=== PATIENT | female | born 2000 | race Caucasian/White ===

== ENCOUNTER 2021-11-03 21:22 | Inpatient (IN) | payer OTHER, SELFPAY ==
[~2021-11-03 21:22] MED LIST: Bupivacaine 0.25% HCL 30 ML VIAL ONE; ePHEDrine Sulfate 50 MG/10 ML VIAL ONE
[2021-11-03] MEDS ORDERED: hydrALAZINE 20 MG/ML VIAL SLOW IVP PRN ×2 (22:20→22:49)
[2021-11-03 22:33] VITALS: BMI 28.5
[2021-11-03 22:33] LABS: Fetal Membranes Rupture RUPTURE DETECTED (No Rupture)
[2021-11-03] MEDS ORDERED: Ondansetron PF 4 MG/2 ML Vial IVP PRN (22:49)
[2021-11-03] MEDS ORDERED: Lidocaine 1% (PF) 30 ML VIAL SC PRN (22:49)
[2021-11-03] MEDS ORDERED: Promethazine HCl 25 MG/ML VIAL IM PRN (22:49)
[2021-11-03] MEDS ORDERED: Lactated Ringer's 1,000 ML IV SCH (23:00)
[2021-11-03] MEDS ORDERED: Penicillin G Potassium 5 MILL.UNITS in Sodium Chloride 0.9% 100 ML IVPB SCH (23:00)
[2021-11-03] MEDS ORDERED: NS w/ Oxytocin 30 units 500 ML IV SCH (23:00)
[2021-11-03] MEDS ORDERED: NS w/ Oxytocin 30 units 500 ML IVPB SCH (23:00)
[2021-11-04 00:49] LABS: Mean Corpuscular HGB CONC 33.1 g/dL (32.0-36.0); Mean Corpuscular Hemoglobin 29.4 pg (27.0-33.0); Mean Corpuscular Volume 88.8 fl (81.6-98.3); Mean Platelet Volume 9.7 fl (7.4-10.4); Platelet Count 307 10x3/uL (150-450); RBC Distribution Width 13.2 % (11.5-14.5); Red Blood Cell (RBC) Count 3.74 10x6/uL (3.90-5.03)
[2021-11-04 01:08] LABS: Hep B Surf Ag Non-Reactive S/CO (NonReactive); Syphilis Antibody Nonreactive (Nonreactive); Syphilis Antibody Index 0.13 S/CO (<1.00 Non-Reactive)
[2021-11-04 01:11] LABS: HBSAg Index 0.18 S/CO (0-0.99)
[2021-11-04 01:29] LABS: SARS-CoV-2 NAA Rapid Test Not Detected (NotDetected)
[2021-11-04] MEDS: Penicillin G 2.5 MILL.units 2.5 MILL.UNITS in Premix Bag 1 BAG IVPB SCH ×5 (04:22→17:06)
[2021-11-04] MEDS: Butorphanol Tartrate 1 MG/ML VIAL SLOW IVP PRN ×2 (04:29→08:08)
[2021-11-04] MEDS: Lactated Ringer's 1,000 ML IV SCH ×2 (06:53→17:05)
[2021-11-04] MEDS ORDERED: Fentanyl 2 mcg/Bup 0.1% Cadd 100 ML ONE (08:08)
[2021-11-04] MEDS ORDERED: CEFAZOLIN 1 GM VIAL ONE (11:55)
[2021-11-04] MEDS ORDERED: Azithromycin 500 MG VIAL ONE (11:56)
[2021-11-04] MEDS ORDERED: Morphine PF 10 MG/10 ML VIAL ONE (12:02)
[2021-11-04] MEDS ORDERED: Fentanyl 100 MCG/2 ML VIAL ONE (12:03)
[2021-11-04] MEDS ORDERED: Ketorolac Tromethamine 30 MG/ML VIAL ONE (12:19)
[2021-11-04 12:20] LABS: RapidComm Collect By CBN; pH (Cord, venous) 7.116 (7.250-7.350)
[2021-11-04] MEDS ORDERED: Ondansetron PF 4 MG/2 ML Vial IVP PRN ×3 (13:42→21:42)
[2021-11-04] MEDS ORDERED: Acetaminophen 325 MG TAB PO PRN (13:42)
[2021-11-04] MEDS ORDERED: ePHEDrine Sulfate 50 MG/10 ML VIAL SLOW IVP PRN (13:42)
[2021-11-04] MEDS ORDERED: Promethazine HCl 25 MG/ML VIAL IM PRN ×2 (13:42→21:42)
[2021-11-04] MEDS ORDERED: Naloxone HCl 0.4 mg/ml Vial IVP PRN ×4 (13:42→21:42)
[2021-11-04] MEDS ORDERED: Hydrocerin (Eucerin) Cream 120 gm Jar TOP PRN ×2 (13:42→21:42)
[2021-11-04] MEDS ORDERED: Lactated Ringer's 500 ML IV PRN (13:42)
[2021-11-04] MEDS ORDERED: diphenhydrAMINE 50 MG/ML VIAL IVP PRN ×2 (13:42→21:42)
[2021-11-04] MEDS ORDERED: Communication Order-Pharmacy FS SCH ×2 (13:45→21:45)
[2021-11-04] MEDS ORDERED: Fentanyl 2 mcg/Bupivacaine 0.1% Cassette 100 ML EPIDURAL SCH (13:45)
[2021-11-04] MEDS ORDERED: hydrALAZINE 20 MG/ML VIAL SLOW IVP PRN (16:56)
[2021-11-04] MEDS ORDERED: Methylergonovine 0.2 MG/ML VIAL IM PRN (16:56)
[2021-11-04] MEDS ORDERED: Lanolin Ointment 7 GM TUBE TOP PRN (16:56)
[2021-11-04] MEDS ORDERED: diphenhydrAMINE 25 MG CAP PO PRN (16:56)
[2021-11-04] MEDS ORDERED: Misoprostol 200 MCG TAB PR PRN (16:56)
[2021-11-04] MEDS ORDERED: Simethicone Chewable 80 MG TAB PO PRN (16:56)
[2021-11-04] MEDS ORDERED: Ibuprofen 800 MG TAB PO SCH (18:00)
[2021-11-04] MEDS: Docusate Calcium (SURFAK) 240 MG CAP PO SCH (20:59)
[2021-11-04] MEDS: Ferrous Sulfate 325 MG TAB PO SCH (21:00)
[2021-11-04] MEDS ORDERED: Naloxone HCl 0.4 mg/ml Vial IV PRN (21:42)
[2021-11-04] MEDS ORDERED: Promethazine HCl 25 MG SUPP PR PRN (21:42)
[2021-11-05] MEDS: Ketorolac Tromethamine 30 MG/ML VIAL IVP PRN ×2 (00:01→05:51)
[2021-11-05 04:09] LABS: Hemoglobin 8.5 g/dL (12.0-15.5); Mean Corpuscular HGB CONC 33.1 g/dL (32.0-36.0); Mean Corpuscular Hemoglobin 29.6 pg (27.0-33.0); Mean Corpuscular Volume 89.5 fl (81.6-98.3); Mean Platelet Volume 9.3 fl (7.4-10.4); Platelet Count 268 10x3/uL (150-450); RBC Distribution Width 13.4 % (11.5-14.5); Red Blood Cell (RBC) Count 2.87 10x6/uL (3.90-5.03); White Blood Cell (WBC) Count 16.9 10x3/uL (3.5-10.5)
[2021-11-05] MEDS: Ferrous Sulfate 325 MG TAB PO SCH ×2 (08:37→21:57)
[2021-11-05] MEDS: Prenatal Vitamin 1 TAB PO SCH (08:37)
[2021-11-05] MEDS: Docusate Calcium (SURFAK) 240 MG CAP PO SCH ×2 (08:37→21:57)
[2021-11-05] MEDS: HYDROcodone/Acetaminophen 5/325 mg Tablet PO PRN ×3 (11:38→21:58)
[2021-11-05] MEDS: Ibuprofen 800 MG TAB PO SCH ×2 (14:25→21:58)
[2021-11-05] MEDS ORDERED: Boostrix 0.5 ML (Tdap) VIAL IM ONE (16:56)
[2021-11-06] MEDS: HYDROcodone/Acetaminophen 5/325 mg Tablet PO PRN ×2 (02:01→05:38)
[2021-11-06] MEDS: Ibuprofen 800 MG TAB PO SCH (05:38)
[2021-11-06] MEDS ORDERED: Varicella virus, LIVE 0.5 ML VIAL SC ONE (06:30)
[2021-11-06 08:05] VITALS: BP 98/56; TEMP 98.6
[2021-11-06] MEDS: Docusate Calcium (SURFAK) 240 MG CAP PO SCH (08:40)
[2021-11-06] MEDS: Ferrous Sulfate 325 MG TAB PO SCH (08:40)
[2021-11-06] MEDS: Prenatal Vitamin 1 TAB PO SCH (08:40)
== END 2021-11-06 12:00 | disposition home or self-care (01) | DRG 806 ==
LOC: CSHLD/OP 21:22 → CSHLD 21:23 → CSHPP 11-04 16:15
PROVIDERS: ADMIT Obstetrics & Gynecology; ATTEND Obstetrics & Gynecology
PROC: 10E0XZZ Delivery of Products of Conception, External Approach (ICD-10-PCS; principal; 2021-11-04)
DX: O99.824 Streptococcus B carrier state complicating childbirth (principal); O98.52 Other viral diseases complicating childbirth; Z37.0 Single live birth; B00.9 Herpesviral infection, unspecified; O26.53 Maternal hypotension syndrome, third trimester; O76 Abnormality in fetal heart rate and rhythm complicating labor and delivery; O69.2XX0 Labor and delivery complicated by other cord entanglement, with compression, not applicable or unspecified; Z3A.39 39 weeks gestation of pregnancy
CPT/HCPCS: 36415; 51702; 82805; 84112; 85027; 86780; 86850; 86900; 86901; 87340; 99285; J0595; J1200; J1885; J2274; J2540; J2550; J2590; J3010; J3490; J7120; S0020; U0002